=== PATIENT | female | born 1980 | race Caucasian/White ===

== ENCOUNTER 2018-11-15 06:11 | Day surgery (SDC) | payer OTHER ==
[2018-11-10 15:04] VITALS: BMI 26.9
[2018-11-15] MEDS ORDERED: Clindamycin/D5W 600 mg/50 ml Premix Bag ONE (06:40)
[2018-11-15] MEDS ORDERED: Dexamethasone 4 mg/ml Vial ONE (06:40)
[2018-11-15] MEDS ORDERED: Hydrocortisone 1% Cream 30 GM TUBE ONE (06:53)
[2018-11-15] MEDS ORDERED: Lidocaine 1% w/Epinephrine 1:100K 20 ML VIAL ONE (06:53)
[2018-11-15] MEDS ORDERED: Chlorhexidine Gluconate 15 ML UDCUP SSP ONE (06:53)
[2018-11-15] MEDS ORDERED: Oxymetazoline HCl 0.05% ( 15 ML ) ONE (07:06)
[2018-11-15] MEDS ORDERED: Fentanyl 100 MCG/2 ML VIAL ONE (07:06)
[2018-11-15] MEDS ORDERED: Bupivacaine HCl 0.5%/Epinephrine 1:200,000/PF 30 ml Vial ONE (08:21)
[2018-11-15] MEDS ORDERED: SUGAMMADEX SODIUM 200 MG/2 ML VIAL ONE (08:21)
[2018-11-15] MEDS ORDERED: Ondansetron PF 4 MG/2 ML Vial ONE (10:57)
[2018-11-15] MEDS ORDERED: Acetaminophen 650 MG/20.3 ML UDCUP ONE (10:57)
[2018-11-15] MEDS ORDERED: ePHEDrine 50 MG/ML VIAL ONE (21:50)
[2018-11-15] MEDS ORDERED: PHENYLEPHRINE-NS 100 MCG/ML 10 ML SYRINGE ONE (21:50)
[2018-11-15] MEDS ORDERED: PROPOFOL 200 MG/20 ML VIAL ONE (21:50)
[2018-11-15] MEDS ORDERED: Lidocaine 1% PF 5 ML VIAL ONE (21:50)
[2018-11-15] MEDS ORDERED: Ketorolac Tromethamine 30 MG/ML VIAL ONE (21:50)
[2018-11-15] MEDS ORDERED: Rocuronium Bromide 10 MG/ML (10ML VIAL) ONE (21:50)
--- NOTE | 2018-11-16 10:19 | OP ---
DATE OF PROCEDURE: 11/15/2018 PREOPERATIVE DIAGNOSES: 1. Generalized nonrestorable dental decay. 2. Small bilateral lingual micaela. 3. Down syndrome. POSTOPERATIVE DIAGNOSES: 1. Generalized nonrestorable dental decay. 2. Small bilateral lingual micaela. 3. Down syndrome. PROCEDURES PERFORMED: 1. Removal of all remaining teeth (teeth numbers 2, 4-6, 9, 11-15, 20-29, 31). 2. Maxillary and mandibular alveoloplasty. 3. Removal of bilateral mandibular lingual micaela. INDICATIONS: This is a 38-year-old female with medical history of Down syndrome , who was referred to my office due to advanced dental decay throughout the remaining dentition and multiple areas of periapical pathology secondary to necrotic and infected teeth. She had immediate dentures fabricated prior to this procedure, and she is brought to the operating room at this time for removal of all remaining teeth and placement of immediate dentures. PROCEDURE IN DETAIL: The patient was identified in the preoperative holding area and all questions were answered with the family present. The patient was taken to the operating room and transferred to the operating room table in supine position and intubated via the Anesthesia Service after induction of a general anesthetic. A surgical time-out was performed. Local anesthetic was delivered to bilateral maxilla and mandible. Sulcular incision was made from the tooth #2 through the tooth #15 region and a conservative full-thickness mucoperiosteal flap was raised around the remaining maxillary teeth. The maxillary teeth were removed with combination of elevators and forceps. The sockets of the maxillary teeth were curetted clean and conservative Alveoplasty was performed with a combination of hand instruments and a bur and a handpiece where indicated. The wounds were irrigated copiously at this time with saline and the maxillary wounds were closed with combination of interrupted and running 4-0 chromic gut sutures. Attention was turned to the mandible and a crestal and sulcular incision was made from the tooth #19 through the tooth #31 region. A conservative full-thickness mucoperiosteal flap was laid buccally and facially in the mandible and a lingual full-thickness mucoperiosteal flap was elevated to expose the bilateral mandibular lingual micaela. The mandibular teeth were then removed with a combination of elevators and forceps. The sockets of the mandibular teeth were then curetted clean, particularly in the teeth #23 and #28 regions, where the largest areas of periapical pathology were present. After curetting the sockets clean, conservative alveoloplasty was performed facially with a combination of hand instruments and a compa and a handpiece. Subsequently, the bilateral mandibular lingual micaela were reduced and removed with a bur under copious irrigation. The mandibular wounds were then irrigated copiously and closed with a combination of interrupted and running 4-0 chromic gut sutures. At this time, the oral cavity was irrigated and suctioned free of fluid and debris. The throat pack, which had been placed at the beginning of the procedure was removed and the dentures were verified to fit. The dentures were left out at this time though and gauze packs with extraoral tells were placed bilaterally to catch any of blood and secretions. The patient was then turned over to Anesthesia Service for emergence and extubation, which ensued without complication. ESTIMATED BLOOD LOSS: 10 mL. INTRAVENOUS FLUIDS: Please see anesthetic record. COMPLICATIONS: None. IMPLANTS: None. DRAINS: None. SPECIMENS: None. FINDINGS: Advanced generalized decay throughout the remaining dentition with multiple areas of periapical pathology. Small bilateral mandibular lingual micaela. DISPOSITION: The patient was transferred to the recovery room in good condition. Job ID: [id number] [facility]
== END 2018-11-15 11:20 | disposition home or self-care (01) ==
LOC: SDC 06:11
PROVIDERS: ATTEND Dentist Oral and Maxillofacial Surgery
PROC: 0CDWXZ1 Extraction of Upper Tooth, Multiple, External Approach (ICD-10-PCS; principal; 2018-11-15)
PROC: 0NBT0ZZ Excision of Right Mandible, Open Approach (ICD-10-PCS; principal; 2018-11-15)
PROC: 0NQT0ZZ Repair Right Mandible, Open Approach (ICD-10-PCS; principal; 2018-11-15)
PROC: 0NBV0ZZ Excision of Left Mandible, Open Approach (ICD-10-PCS; principal; 2018-11-15)
PROC: 0NBR0ZZ Excision of Maxilla, Open Approach (ICD-10-PCS; principal; 2018-11-15)
PROC: 0CDXXZ1 Extraction of Lower Tooth, Multiple, External Approach (ICD-10-PCS; principal; 2018-11-15)
PROC: 0NQV0ZZ Repair Left Mandible, Open Approach (ICD-10-PCS; principal; 2018-11-15)
PROC: 0NQR0ZZ Repair Maxilla, Open Approach (ICD-10-PCS; principal; 2018-11-15)
DX: K02.9 Dental caries, unspecified (principal); K04.7 Periapical abscess without sinus; M27.0 Developmental disorders of jaws; Q90.9 Down syndrome, unspecified; J45.909 Unspecified asthma, uncomplicated; Z88.0 Allergy status to penicillin; Z88.1 Allergy status to other antibiotic agents; Z88.2 Allergy status to sulfonamides
CPT/HCPCS: J0670; J1100; J1885; J2001; J2405; J2704; J3010; J3490